=== PATIENT | male | born 1955 | race Caucasian/White ===

== ENCOUNTER 2025-01-21 11:59 | Inpatient (IN) ==
[2025-01-21 12:31] LABS: Hematocrit (blood only) 43.2 % (42.0-52.0); Hemoglobin 14.7 g/dl (14.0-18.0); Immature Granulocytes # (auto) 0.02 K/uL (0.01-0.20); Immature Granulocytes % (auto) 0.3 %; Mean Corpuscular Hemoglobin 32.3 pg (25.0-34.0); Mean Corpuscular Volume 94.9 fL (80.0-100.0); Platelet Count 163 K/uL (130-400); RDW Standard Deviation 47.1 fL (36.4-46.3); Red Blood Count 4.55 M/uL (4.70-6.10); White Blood Count 6.84 K/ul (4.8-10.8)
[2025-01-21] MEDS: ONDANSETRON INJ 2 MG/ML 2 ML VIAL IV STA (12:38)
[2025-01-21] MEDS: SODIUM CHLORIDE 0.9% 500 ML IV ONE ×2 (12:38→13:40)
[2025-01-21] MEDS: diphenhydrAMINE 50 MG/ML VIAL IV STA (12:39)
--- NOTE | 2025-01-21 12:40 | Emergency Department Note ---
Impression & Plan Acute CVA (cerebrovascular accident), Ambulatory dysfunction, Vomiting ED Provider Note NAME: JUAN CARLOS GONZALEZ AGE: 69 SEX: M : 1955 ARRIVES VIA: Walk-In INFORMANT: [Patient][] ED PROVIDER(S): [Roberto Carranza MD] Patient initially seen by me at 1215 CHIEF COMPLAINT: Dizziness HISTORY OF PRESENT ILLNESS: The patient is a 69-year-old male who had a bit of dizziness that would come and go yesterday. Today, at 6:30 AM, just about 6 hours ago, he was attempting to get to the bathroom when he felt very dizzy and had fuzzy vision. He has vomited 5 times. He feels unsteady on his feet. No speech slur, he did notice a slight headache. No chest pain or dyspnea. No arm or leg weakness on one side versus the other. As per his who is at bedside, the patient is unsteady on his feet and this is very unlike him. There has been no fever, no urinary complaints. No abdominal pain, no diarrhea. The patient's states that he had an episode like this about a month ago that seemed to resolve spontaneously. He had the start of symptoms again yesterday evening and things seemed to worsen this morning. PMHx/PSHx/Social Hx: See Below PHYSICAL EXAM: GENERAL: Patient is in no acute distress. HEENT: No acute trauma, normocephalic atraumatic, mucous membranes moist, no nasal congestion. Pupils equal and reactive to light. No nystagmus. NECK: No stridor, no adenopathy, no meningismus, trachea is midline. LUNGS: Clear to auscultation bilaterally, no wheeze, no rhonchi, breath sounds equal. HEART: Subtle systolic murmur, regular rate and rhythm. ABDOMEN: Soft, nontender, no peritonitis. EXTREMITIES: No cyanosis, full range of motion of all the joints without pain or difficulty. NEUROLOGIC: Oriented x 3, no acute motor or sensory deficits, no focal weakness. No facial droop or speech slur, no extremity drift or cerebellar dysfunction. SKIN: No jaundice, no diaphoresis. DIFFERENTIAL DIAGNOSIS: Stroke, vertigo, intracranial bleeding, electrolyte imbalance, UTI, among others. EMERGENCY DEPARTMENT PROCEDURES: MEDICAL DECISION MAKING: There is no leukocytosis or concerning anemia. There is a normal platelet count. No coagulopathy. No renal failure or significant electrolyte abnormality. No concerning liver enzyme elevation. ECG shows a sinus rhythm, there was no dysrhythmia or acute ischemia. Cardiac enzyme testing x 1 is not consistent with acute cardiac injury. Urinalysis does not show findings of infection. Brain CT shows no acute bleed or mass effect. CT angio of the head and neck were performed. 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 There was some mild stenosis in the arteries of the neck. On exam, the patient did not have any focal neurologic findings. His complaints centered around some issues with balance and dizziness. Stroke scale by my testing was 0. The patient was not a candidate for TNK as he was out of the time window. I did speak with the [facility] neurologist. The patient is not a TNK candidate, he is not a thrombectomy candidate, he is to be admitted to our hospital for further stroke workup. Aspirin and Plavix orally were suggested. Patient was ordered 4 baby aspirin orally and 300 mg of oral Plavix. I spoke with the patient and his , I spoke with case management, the on-call hospitalist was consulted. In short, the findings of acute CVA do seem to explain his symptoms. Prior/Outside records/notes reviewed: None ECG per my interpretation: Indication was possible stroke. The ECG shows a sinus bradycardia with a rate of 51. LVH is present. There is no ST elevation, no PVCs but the QTc is 420. Continuous Cardiac Monitoring per my interpretation: An order was placed for continuous cardiac monitoring. The monitor shows a rate of 60 with normal sinus rhythm. Imaging/x-ray results per my interpretation: Chronic Medical/Social conditions affecting care: Advanced age. Care/Management discussed with: [facility] neurolog[facility]-Dr. eCdeno. Case management and the on-call hospitalist. Level of care consideration(s): After review of the information above and other included data: --I believe the patient requires escalation of care to admission Critical Care Note: I have personally spent 49 minutes of critical care time in the direct management of this patient. This includes bedside care, interpretation of diagnostic studies, and testing, discussion with consultants, patient, and family members, and other required patient management activities. This 49 minutes is in excess of all separately billable procedures. DISPOSITION: Admission Past Med/Surg History Problem List (Updated 01/21/25 @ 14:39 by Roberto Carranza MD) Vomiting (Acute) Ambulatory dysfunction (Acute) Acute CVA (cerebrovascular accident) (Acute) Medical History GERD (gastroesophageal reflux disease) Dyslipidemia Peripheral neuropathy Colon cancer Surgical History History of bowel resection Social History Smoking Status: Never smoker Preferred Language: Spanish Feels Safe at Home: Yes Allergies Allergies Allergy/AdvReac Type Severity Reaction Status Date / Time No Known Allergies Allergy Verified 01/26/24 08:41 Results & Data (ED) Vital Signs Vital Signs - 24 hr 01/21/25 11:59 01/21/25 12:03 01/21/25 12:27 Temperature 36.7 C Temperature Source Temporal Artery Scan Pulse Rate 58 L 56 L Pulse Rate from SpO2 Sensor Respiratory Rate 20 Respiratory Effort / Characteristics Non-Labored Spontaneous Respiratory Depth Normal Blood Pressure 158/79 H Blood Pressure Mean 105 Pulse Oximetry 88 L 96 Oxygen Delivery Method Room Air Nasal Cannula Room Air Oxygen Flow Rate 0 Sepsis Recent Fever Within 48 Hours No Sepsis New/Unexplained Change in Mental Status N/A Sepsis Action Taken by Nursing No Action Required Oxygen Flow Rate - Titration 2 Pulse Oximetry Post Tiitration 94 01/21/25 12:33 01/21/25 12:42 01/21/25 12:56 Temperature Temperature Source Pulse Rate 58 L 54 L 60 Pulse Rate from SpO2 Sensor 58 L 53 L 59 L Respiratory Rate 15 15 19 Respiratory Effort / Characteristics Respiratory Depth Blood Pressure 136/82 Blood Pressure Mean 100 Pulse Oximetry 96 91 98 Oxygen Delivery Method Oxygen Flow Rate Sepsis Recent Fever Within 48 Hours Sepsis New/Unexplained Change in Mental Status Sepsis Action Taken by Nursing Oxygen Flow Rate - Titration Pulse Oximetry Post Tiitration 01/21/25 13:02 01/21/25 13:19 01/21/25 13:19 Temperature Temperature Source Pulse Rate 60 Pulse Rate from SpO2 Sensor 59 L Respiratory Rate 20 Respiratory Effort / Characteristics Respiratory Depth Blood Pressure 136/82 159/95 H 159/95 H Blood Pressure Mean 100 109 109 Pulse Oximetry 99 Oxygen Delivery Method Oxygen Flow Rate Sepsis Recent Fever Within 48 Hours Sepsis New/Unexplained Change in Mental Status Sepsis Action Taken by Nursing Oxygen Flow Rate - Titration Pulse Oximetry Post Tiitration 01/21/25 13:19 01/21/25 13:20 01/21/25 13:23 Temperature Temperature Source Pulse Rate 62 60 Pulse Rate from SpO2 Sensor 62 61 Respiratory Rate 15 28 H Respiratory Effort / Characteristics Respiratory Depth Blood Pressure 159/95 H Blood Pressure Mean 109 Pulse Oximetry 97 98 Oxygen Delivery Method Oxygen Flow Rate Sepsis Recent Fever Within 48 Hours Sepsis New/Unexplained Change in Mental Status Sepsis Action Taken by Nursing Oxygen Flow Rate - Titration Pulse Oximetry Post Tiitration 01/21/25 13:30 01/21/25 13:50 01/21/25 14:05 Temperature Temperature Source Pulse Rate 62 65 Pulse Rate from SpO2 Sensor 61 63 Respiratory Rate 14 13 Respiratory Effort / Characteristics Respiratory Depth Blood Pressure 141/92 H Blood Pressure Mean 103 Pulse Oximetry 99 99 Oxygen Delivery Method Oxygen Flow Rate Sepsis Recent Fever Within 48 Hours Sepsis New/Unexplained Change in Mental Status Sepsis Action Taken by Nursing Oxygen Flow Rate - Titration Pulse Oximetry Post Tiitration 01/21/25 14:17 Temperature Temperature Source Pulse Rate 59 L Pulse Rate from SpO2 Sensor 58 L Respiratory Rate 17 Respiratory Effort / Characteristics Respiratory Depth Blood Pressure 166/101 H Blood Pressure Mean 122 Pulse Oximetry 99 Oxygen Delivery Method Oxygen Flow Rate Sepsis Recent Fever Within 48 Hours Sepsis New/Unexplained Change in Mental Status Sepsis Action Taken by Nursing Oxygen Flow Rate - Titration Pulse Oximetry Post Tiitration Home Medications Current Medication List: was personally reviewed by me Laboratory Data Attestation: I reviewed the patient's lab results. 01/21/25 12:10 01/21/25 12:10 Lab Results 01/21/25 01/21/25 Range/Units 12:10 13:41 WBC 6.84 (4.8-10.8) K/ul RBC 4.55 L (4.70-6.10) M/uL Hgb 14.7 (14.0-18.0) g/dl Hct 43.2 (42.0-52.0) % MCV 94.9 (80.0-100.0) fL MCH 32.3 (25.0-34.0) pg MCHC 34.0 (32.0-36.0) g/dL RDW Std Deviation 47.1 H (36.4-46.3) fL RDW Coeff of [place] 13.4 (11.5-14.5) % Plt Count 163 (130-400) K/uL MPV 9.3 L (9.4-12.4) fL Immature Gran % (Auto) 0.3 % Neut % (Auto) 54.6 % Lymph % (Auto) 38.5 % Coffee % (Auto) 4.8 % Eos % (Auto) 1.2 % Baso % (Auto) 0.6 % Neut # (Auto) 3.74 (1.40-6.50) K/uL Lymph # (Auto) 2.63 (1.20-3.40) K/uL Coffee # (Auto) 0.33 (0.11-0.59) K/uL Eos # (Auto) 0.08 (0.00-0.50) K/uL Baso # (Auto) 0.04 (0.00-0.20) K/uL Immature Gran # (Auto) 0.02 (0.01-0.20) K/uL PT 11.2 (9.0-12.0) Seconds INR 1.0 (0.9-1.1) APTT 25 (21-31) Seconds PTT Ratio 0.9 Sodium 139 (136-145) mmol/L Potassium 4.5 (3.5-5.1) mmol/L Chloride 106 (98-107) mmol/L Carbon Dioxide 27 (21-32) mmol/L Anion Gap 6 (3-11) BUN 11 (6-23) mg/dl Creatinine 1.15 (0.6-1.4) mg/dl Est Cr Clr Drug Dosing 62.4 ml/min eGFR 68.47 BUN/Creatinine Ratio 9.6 L (10-20) Glucose 122 H (70-99(Fasting)) mg/dl Calcium 9.3 (8.6-10.3) mg/dl Magnesium 2.0 (1.7-2.4) mg/dl Total Bilirubin 0.9 (0.2-1.0) mg/dl AST 27 (13-39) U/L ALT 18 (7-52) U/L Alkaline Phosphatase 50 (34-104) U/L Troponin I High Sens 5.0 (0-20) pg/ml Total Protein 7.5 (6.0-8.3) gm/dl Albumin 4.2 (3.4-5.0) gm/dl Globulin 3.3 (2.5-4.0) gm/dl Albumin/Globulin Ratio 1.3 (0.9-2) Urine Color Yellow Urine Appearance Clear (Clear) Urine pH 8.0 H (4.5-7.5) Ur Specific [place] > 1.045 H (1.000-1.030) Urine Protein Negative (Negative) Urine Glucose (UA) Negative (Negative) Urine Ketones Negative (Negative) Urine Blood Negative (Negative) Urine Nitrite Negative (Negative) Urine Bilirubin Negative (Negative) Urine Urobilinogen Negative (Negative) Ur Leukocyte Esterase 1+ H (Negative) Urine WBC (Auto) 0-5 (0-5) /hpf Urine RBC (Auto) 0-2 (0-2) /hpf U Hyaline Cast (Auto) 0-2 (0-2) /lpf U Epithel Cells (Auto) 0-2 (0-2) /hpf Urine Bacteria (Auto) None Seen (None Seen) Urine Comment Administered Medications Discontinued Medications Aspirin (Aspirin Chew 324 Mg) 324 mg PO NOW STA Stop: 01/21/25 14:09 Last Admin: 01/21/25 14:12 Dose: 324 mg Documented By: JAYME Clopidogrel Bisulfate (Clopidogrel Bisulfate 300 Mg Tab) 300 mg PO NOW STA Stop: 01/21/25 14:09 Last Admin: 01/21/25 14:12 Dose: 300 mg Documented By: JAYME Diphenhydramine HCl (Diphenhydramine 50 Mg/Ml Vial) 12.5 mg IV NOW STA Stop: 01/21/25 12:10 Last Admin: 01/21/25 12:39 Dose: 12.5 mg Documented By: JAYME Sodium Chloride (Nss) 500 mls @ 999 mls/hr IV .Q31M ONE Stop: 01/21/25 12:39 Last Admin: 01/21/25 12:38 Dose: 999 mls/hr Documented By: JAYME Sodium Chloride (Nss) 500 mls @ 999 mls/hr IV .Q31M ONE Stop: 01/21/25 14:02 Last Admin: 01/21/25 13:40 Dose: 999 mls/hr Documented By: JAYME Ioversol (Optiray 320 125ml) 112 ml IV ONCE ONE Stop: 01/21/25 13:08 Last Admin: 01/21/25 13:08 Dose: 112 ml Documented By: CAMDEN Ondansetron HCl (Ondansetron Inj 2 Mg/Ml 2 Ml Vial) 4 mg IV NOW STA Stop: 01/21/25 12:10 Last Admin: 01/21/25 12:38 Dose: 4 mg Documented By: JAYME Imaging Data Radiologist's Impression: Head CT 01/21/25 12:09 CT SCAN OF THE BRAIN WITHOUT IV CONTRAST CLINICAL HISTORY: Neuro deficit. Acute stroke suspected. Dizziness. COMPARISON STUDY: None. TECHNIQUE: Unenhanced axial CT scan of the brain was performed from the vertex to the skull base. A dose lowering technique was utilized adhering to the principles of ALARA. FINDINGS: Brain parenchyma: No acute intracranial hemorrhage, midline shift or mass effect is present. Lloyd-white matter differentiation is preserved. There are no extra- axial fluid collections. There are no findings to suggest acute dural sinus thrombosis or acute territorial infarct. Bilateral basal ganglia calcification is incidentally noted. White matter hypodensity suggests small vessel disease. Ventricles, sulci, cisterns: There is no hydrocephalus. There is a cavum septum pellucidum. The basal cisterns are patent. Calvarium: Unremarkable. Sinuses and mastoids: The visualized paranasal sinuses are clear. The mastoid air cells are well pneumatized. Orbits: The bony orbits are grossly intact. IMPRESSION: No acute intracranial findings. ACT 112: Negative or not required by law. Electronically signed by: Alfonzo Munroe M.D. 01/21/2025 1:35 PM Head CTA 01/21/25 12:09 CTA ANGIOGRAPHY OF THE HEAD CLINICAL HISTORY: neuro deficit, acute stroke suspected COMPARISON STUDY: No previous studies for comparison. TECHNIQUE: Helical axial images of the head were obtained following uneventful intravenous administration of 94 cc of Optiray. Sagittal and coronal reconstructions were viewed as well as maximal intensity projections on an independent 3-D workstation. Automated exposure control was utilized for the study. A dose lowering technique was utilized adhering to the principles of ALARA. CT DOSE: 1169.11 mGy.cm FINDINGS: Please note that the head CT will be reported separately. No acute intracranial hemorrhage, midline shift or mass effect is present. Basal cisterns are patent. There are no extra-axial collections. The bilateral M1, M2, A1 and A2 segments are patent. There is moderate atherosclerotic plaque within the cavernous carotids without significant stenosis. There is no intracranial aneurysm. The intracranial portions of the vertebral arteries are patent. Apparent occlusion of a vessel within the posterior fossa on image 45 is noted. This likely represents the left posterior inferior cerebellar artery. The basilar artery is patent. The posterior cerebral arteries are patent. IMPRESSION: 1. Probable occlusion of a vessel within the posterior fossa likely representing occlusion with distal reconstitution of the left PICA. This could be correlated with clinical evidence for an acute left PICA infarct. If indicated, MRI could be obtained. 2. No additional sites of intracranial vessel occlusion. 3. Moderate atherosclerotic plaque within the cavernous carotids. ACT 112: Negative or not required by law. Electronically signed by: Alfonzo Munroe M.D. 01/21/2025 1:45 PM Neck CTA 01/21/25 12:09 CT ANGIOGRAPHY OF THE NECK WITH CONTRAST CLINICAL HISTORY: neuro deficit, acute stroke suspected COMPARISON STUDY: No previous studies for comparison. Technique: CT angiography of the carotid and vertebral arteries was obtained using Optiray and 3D reconstruction on an independent workstation. NASCET criteria was utilized. Automated exposure control was utilized for the study. A dose lowering technique was utilized adhering to the principles of ALARA. Findings: Visualized portions of the lung apices are unremarkable. There is no cervical lymphadenopathy. There are no cervical spine fractures. There is extensive plaque within the proximal right internal carotid artery results in 30% narrowing. There is extensive plaque within the proximal left internal carotid artery without stenosis. The vertebral arteries are patent with no dissection or aneurysm within the neck. CTA of the head will be reported separately. IMPRESSION: Atherosclerotic plaque within the proximal bilateral internal carotid arteries which results in 30% stenosis of the proximal right internal carotid artery. No stenosis of the cervical left internal carotid artery. ACT 112: Negative or not required by law. Electronically signed by: Alfonzo Munroe M.D. 01/21/2025 1:39 PM Discharge Plan Visit Data Chief Complaint: Dizziness Stated Complaint: DIZZY, VOMITING ED Provider: Roberto Carranza Discharge Problem: Acute CVA (cerebrovascular accident), Ambulatory dysfunction, Vomiting Patient Disposition: Admitted As Inpatient Condition: Fair Forms Stand Alone Forms: [facility] Referrals Referrals: PCP,NO [Physician] - Discharge Problem: Vomiting Qualifiers: Vomiting type: unspecified Nausea presence: with nausea Qualified Code(s): R 11.2 - Nausea with vomiting, unspecified
[2025-01-21 12:48] LABS: Alanine Aminotransferase 18.0 U/L (7-52); Albumin Globulin Ratio 1.3 (0.9-2); Alkaline Phosphatase 50.0 U/L (34-104); Anion Gap 6.0 (3-11); Bilirubin,Total 0.9 mg/dl (0.2-1.0); Blood Urea Nitrogen 11.0 mg/dl (6-23); Calcium 9.3 mg/dl (8.6-10.3); Carbon Dioxide 27.0 mmol/L (21-32); Chloride 106.0 mmol/L (98-107); Creatinine Clr Calc Pharmacy 62.4 ml/min; Globulin 3.3 gm/dl (2.5-4.0); Glucose 122.0 mg/dl (70-99(Fasting)); Magnesium 2.0 mg/dl (1.7-2.4); Potassium 4.5 mmol/L (3.5-5.1); Sodium 139.0 mmol/L (136-145); Total Protein 7.5 gm/dl (6.0-8.3)
[2025-01-21] MEDS: OPTIRAY 320 125ml IV ONE (13:08)
[2025-01-21 13:13] LABS: INR 1.0 (0.9-1.1); Partial Thromboplastin Time 25 Seconds (21-31); Prothrombin Time 11.2 Seconds (9.0-12.0)
--- NOTE | 2025-01-21 13:37 | CT Scan Report ---
CT SCAN OF THE BRAIN WITHOUT IV CONTRAST CLINICAL HISTORY: Neuro deficit. Acute stroke suspected. Dizziness. COMPARISON STUDY: None. TECHNIQUE: Unenhanced axial CT scan of the brain was performed from the vertex to the skull base. A dose lowering technique was utilized adhering to the principles of ALARA. FINDINGS: Brain parenchyma: No acute intracranial hemorrhage, midline shift or mass effect is present. Lloyd-whi te matter differentiation is preserved. There are no extra-axial fluid collections. There are no find ings to suggest acute dural sinus thrombosis or acute territorial infarct. Bilateral basal ganglia ca lcification is incidentally noted. White matter hypodensity suggests small vessel disease. Ventricles, sulci, cisterns: There is no hydrocephalus. There is a cavum septum pellucidum. The basal cisterns are patent. Calvarium: Unremarkable. Sinuses and mastoids: The visualized paranasal sinuses are clear. The mastoid air cells are well pneu matized. Orbits: The bony orbits are grossly intact. IMPRESSION: No acute intracranial findings. ACT 112: Negative or not required by law. Electronically signed by: Alfonzo Munroe M.D. 01/21/2025 1:35 PM
--- NOTE | 2025-01-21 13:41 | CT Scan Report ---
CT ANGIOGRAPHY OF THE NECK WITH CONTRAST CLINICAL HISTORY: neuro deficit, acute stroke suspected COMPARISON STUDY: No previous studies for comparison. Technique: CT angiography of the carotid and vertebral arteries was obtained using Optiray and 3D rec onstruction on an independent workstation. NASCET criteria was utilized. Automated exposure control was utilized for the study. A dose lowering technique was utilized adhering to the principles of ALA RA. Findings: Visualized portions of the lung apices are unremarkable. There is no cervical lymphadenopat hy. There are no cervical spine fractures. There is extensive plaque within the proximal right internal medicine doctor al carotid artery results in 30% narrowing. There is extensive plaque within the proximal left internal medicine doctor al carotid artery without stenosis. The vertebral arteries are patent with no dissection or aneurysm within the neck. CTA of the head will be reported separately. IMPRESSION: Atherosclerotic plaque within the proximal bilateral internal carotid arteries which resu lts in 30% stenosis of the proximal right internal carotid artery. No stenosis of the cervical left i nternal carotid artery. ACT 112: Negative or not required by law. Electronically signed by: Alfonzo Munroe M.D. 01/21/2025 1:39 PM
--- NOTE | 2025-01-21 13:47 | CT Scan Report ---
CTA ANGIOGRAPHY OF THE HEAD CLINICAL HISTORY: neuro deficit, acute stroke suspected COMPARISON STUDY: No previous studies for comparison. TECHNIQUE: Helical axial images of the head were obtained following uneventful intravenous administr ation of 94 cc of Optiray. Sagittal and coronal reconstructions were viewed as well as maximal intens ity projections on an independent 3-D workstation. Automated exposure control was utilized for the fred yeung. A dose lowering technique was utilized adhering to the principles of ALARA. CT DOSE: 1169.11 mGy.cm FINDINGS: Please note that the head CT will be reported separately. No acute intracranial hemorrhage, midline shift or mass effect is present. Basal cisterns are patent. There are no extra-axial collect ions. The bilateral M1, M2, A1 and A2 segments are patent. There is moderate atherosclerotic plaque w ithin the cavernous carotids without significant stenosis. There is no intracranial aneurysm. The int racranial portions of the vertebral arteries are patent. Apparent occlusion of a vessel within the po sterior fossa on image 45 is noted. This likely represents the left posterior inferior cerebellar art madonna. The basilar artery is patent. The posterior cerebral arteries are patent. IMPRESSION: 1. Probable occlusion of a vessel within the posterior fossa likely representing occlusion with dista l reconstitution of the left PICA. This could be correlated with clinical evidence for an acute left PICA infarct. If indicated, MRI could be obtained. 2. No additional sites of intracranial vessel occlusion. 3. Moderate atherosclerotic plaque within the cavernous carotids. ACT 112: Negative or not required by law. Electronically signed by: Alfonzo Munroe M.D. 01/21/2025 1:45 PM
[2025-01-21 14:11] LABS: Appearance Urine Clear (Clear); Bacteria Urine Automated None Seen (None Seen); Cast Urine Automated 0-2 /lpf (0-2); Epithelial Cell Urine Auto 0-2 /hpf (0-2); Glucose Urine UA Negative (Negative); RBC Urine Automated 0-2 /hpf (0-2); WBC Urine Automated 0-5 /hpf (0-5)
[2025-01-21] MEDS: ASPIRIN CHEW 324 MG PO STA (14:12)
[2025-01-21] MEDS: CLOPIDOGREL BISULFATE 300 MG TAB PO STA (14:12)
--- NOTE | 2025-01-21 14:59 | History & Physical Report ---
Date of Service January 21, 2025 Assessment & Plan (1) Acute CVA (cerebrovascular accident): Plan: MRI showed-Bilateral Cerebellar infarct Left>Right Presented with acute dizziness and unsteadiness with nausea, vomiting and blurred vision since 6:30 AM Noted to have left PICA infarct with occlusion Past the window for TNK The ER physician did discuss with the teleneurology and was advised to start aspirin Plavix No problem with swallowing and visual symptoms resolved Venancio get Echocardiogram with bubble study and lipid profile Aspirin and Plavix will be continued.PT/OT requested Neuroexam q shift Neurology consult (2) Ambulatory dysfunction: Plan: Likely secondary to posterior circulation stroke Will have PT and OT evaluation (3) Peripheral neuropathy: Plan: History of colon cancer and is status post chemotherapy 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 (4) GERD (gastroesophageal reflux disease): Plan: Willll continue with PPI (5) Dyslipidemia: Plan: Continue fenofibrate and will add statin DVT prophylaxis Subcu heparin CODE STATUS full The case was discussed in detail with the and the patient himself History of Present Illness Chief Complaint: Nausea, vomiting, dizziness and blurry vision at around 6:30 AM today she she is Primary Care Provider: Nomi Archuleta DO He is 69-year-old male significant past medical history of colon cancer status postchemotherapy, peripheral neuropathy secondary to chemotherapy, hyperlipidemia, sleep apnea, GERD and lumbar degenerative disc disease apparently has been complaining of nausea with vomiting about 7 times started around 6:30 AM associated with dizziness and unsteady gait and also blurry vision. His symptoms improved after coming to the emergency room and during that time upon neuro examinations by the ER physician later on by myself have been negative. He was noted to have occlusion of the left posterior inferior cerebellar artery. The ER physician did discuss with the teleneurologist and was advised to get aspirin and Plavix and also performed stroke workup. He denies any other symptoms and does not have any fever, any chills, any nausea or vomiting, any chest pain palpitation, any blurry of vision or headache and does not have any numbness and or tingling involving any of the extremities. He was admitted to telemetry unit for continuation of care Allergies Allergy/AdvReac Type Severity Reaction Status Date / Time No Known Allergies Allergy Verified 01/26/24 08:41 Home Medications Medication Instructions Recorded Confirmed Type fenofibrate nanocrystallized 48 mg 48 mg PO DAILY 01/21/25 01/21/25 History tablet gabapentin 100 mg capsule 100 mg PO TID 01/21/25 01/21/25 History omeprazole 20 mg capsule,delayed 20 mg PO BID 01/21/25 01/21/25 History release oxycodone-acetaminophen 5 mg-325 1 tab PO DIRECTED PRN Pain 01/21/25 01/21/25 History mg tablet Past Med/Surg History Problem List (Updated 01/21/25 @ 14:39 by Roberto Carranza MD) Vomiting (Acute) Ambulatory dysfunction (Acute) Acute CVA (cerebrovascular accident) (Acute) Medical History GERD (gastroesophageal reflux disease) Dyslipidemia Peripheral neuropathy Colon cancer Surgical History History of bowel resection Social History Smoking Status: Former smoker Tobacco Type: Cigarettes Hx Alcohol Use: No Hx Substance Use: No Preferred Language: Lao Communication Ability: Effective Sign Out Clerk Required: No Beliefs That Will Affect Care: None Current Living Situation: Spouse Other Information That Helps Us Care for You: No Feels Safe at Home: Yes Safety Concerns: Feels Safe At This Time Assistive Devices: Denture - Upper, Denture - Lower and Glasses Review of Systems Review of Systems: All systems reviewed and unremarkable except as noted below Physical Exam Physical Exam: Lying in bed without any acute distress Constitutional: well developed, well nourished and + obese; not ill appearing Eyes: PERRL, conjunctivae normal, anicteric sclerae ENMT: external ear and nose normal, oropharynx normal Neck: trachea midline, no thyromegaly Respiratory: no respiratory distress Auscultation: lungs clear to auscultation bilaterally Cardiovascular: Rate/Rhythm: regular rate and regular rhythm; not tachycardic Heart Sounds: normal S1 and normal S2; no murmur Extremities: no edema Gastrointestinal (Abdomen): Inspection/Auscultation: normal bowel sounds; abdomen not distended Percussion/Palpation: abdomen soft; abdomen nontender Musculoskeletal: No acute arthritis involving any of the joint Neurologic: normal touch/pain/proprioception, CN's II-XI intact bilaterally and moves all extremities; no focal motor deficits Psychiatric: A+Ox3, euthymic affect Lymphatic: no cervical or axillary lymphadenopathy Results & Data Results & Data Vital Signs (Past 12 Hours) Vital Signs Temp Pulse Resp BP Pulse Ox O2 Del Method O2 Flow Rate 01/21/25 14:17 59 L 17 166/101 H 99 01/21/25 14:05 65 13 99 01/21/25 13:50 62 14 99 01/21/25 13:30 141/92 H 01/21/25 13:23 60 28 H 98 01/21/25 13:20 62 15 97 01/21/25 13:19 159/95 H 01/21/25 13:19 159/95 H 01/21/25 13:19 159/95 H 01/21/25 13:02 60 20 136/82 99 01/21/25 12:56 60 19 98 01/21/25 12:42 54 L 15 136/82 91 01/21/25 12:33 58 L 15 96 01/21/25 12:27 56 L 01/21/25 12:03 36.7 C 58 L 20 158/79 H 96 Room Air 01/21/25 11:59 88 L Room Air, Nasal Cannula 0 Laboratory Results Short CBC 01/21/25 Range/Units 12:10 WBC 6.84 (4.8-10.8) K/ul Hgb 14.7 (14.0-18.0) g/dl Hct 43.2 (42.0-52.0) % Plt Count 163 (130-400) K/uL BMP 01/21/25 12:10 Sodium 139 Potassium 4.5 Chloride 106 Carbon Dioxide 27 BUN 11 Creatinine 1.15 Glucose 122 H Calcium 9.3 Liver Function 01/21/25 Range/Units 12:10 Total Bilirubin 0.9 (0.2-1.0) mg/dl AST 27 (13-39) U/L ALT 18 (7-52) U/L Alkaline Phosphatase 50 (34-104) U/L Albumin 4.2 (3.4-5.0) gm/dl Urine 01/21/25 Range/Units 13:41 Urine Color Yellow Urine Appearance Clear (Clear) Urine pH 8.0 H (4.5-7.5) Ur Specific [place] > 1.045 H (1.000-1.030) Urine Protein Negative (Negative) Urine Glucose (UA) Negative (Negative) Medications Administered Current Inpatient Medications Aspirin (Aspirin 81 Mg Ectab) 81 mg PO DAILY JOAN Stop: 02/21/25 08:59 Clopidogrel Bisulfate (Clopidogrel Bisulfate 75 Mg Tab) 75 mg PO QAM [facility] Stop: 02/21/25 08:59 Heparin Sodium (Porcine) (Heparin Sod 5,000 Unit/0.5 Ml Vial) 5,000 units SQ Q12 [facility] Stop: 02/20/25 20:59 Code Status & VTE Plan VTE Prophylaxis Plan VTE Prophylaxis will be ordered: Yes
--- NOTE | 2025-01-21 15:26 | Communication Note ---
Date of Service: January 21, 2025 Please do the Med Rec. Thank You
--- NOTE | 2025-01-21 17:28 | Magnetic Resonance Report ---
Exam: MRI of the brain without contrast. Reason for exam: Dizziness and nausea, rule out CVA. Loss of balance. Previous studies: None FINDINGS: No evidence of pituitary mass or suprasellar lesion. There are areas of restricted diffusion in the central inferior left cerebellar hemisphere and peripherally of the medial cerebellar hemispheres bilaterally. No mass effect or hemorrhage is seen. Calvarium septum pellucidum is present. No extra-axial bladder fluid collection is present. No specific evidence of ventricular enlargement is noted. Moderate amount of diffuse and essentially symmetric bright signal is seen in the deep periventricular white matter on the T2 images most often suggestive of chronic microvascular ischemia. IMPRESSION: 1. Areas of acute ischemic infarction occurring in the periphery of the cerebellar hemispheres bilaterally, left side greater than right. 2. Negative for mass or hemorrhage. 3. Moderate chronic ischemic angiopathy in the deep white matter. 4. The patient's hospitalist Dr Galicia was informed of these findings at 1720 hours. Electronically signed by Jose Dai 01-21-2025 5:28 PM
--- NOTE | 2025-01-21 19:18 | Electrocardiogram Report ---
Test Reason : Blood Pressure : */* mmHG Vent. Rate : 51 BPM Atrial Rate : 51 BPM P-R Int : 140 ms QRS Dur : 88 ms QT Int : 456 ms P-R-T Axes : 35 -14 19 degrees QTcB Int : 420 ms Sinus bradycardia Minimal voltage criteria for LVH, may be normal variant ( R in aVL ) Borderline ECG No previous ECGs available Confirmed by Cameron Meza ([id number]) on 01/21/2025 7:18:28 PM Referred By: REFERRED SELF Confirmed By: Cameron Meza
[2025-01-21] MEDS: HEPARIN SOD 5,000 UNIT/0.5 ML VIAL SQ SCH (20:16)
[2025-01-21] MEDS: GABAPENTIN 100 MG CAP PO SCH (20:16)
[2025-01-22 06:56] LABS: Hematocrit (blood only) 41.3 % (42.0-52.0); Hemoglobin 14.1 g/dl (14.0-18.0); Immature Granulocytes # (auto) 0.01 K/uL (0.01-0.20); Immature Granulocytes % (auto) 0.1 %; Mean Corpuscular Hemoglobin 32.3 pg (25.0-34.0); Mean Corpuscular Volume 94.5 fL (80.0-100.0); Platelet Count 148 K/uL (130-400); RDW Standard Deviation 46.0 fL (36.4-46.3); Red Blood Count 4.37 M/uL (4.70-6.10); White Blood Count 8.31 K/ul (4.8-10.8)
[2025-01-22 07:25] LABS: Anion Gap 5.0 (3-11); Blood Urea Nitrogen 12.0 mg/dl (6-23); Calcium 8.7 mg/dl (8.6-10.3); Carbon Dioxide 29.0 mmol/L (21-32); Chloride 105.0 mmol/L (98-107); Cholesterol 166.0 mg/dl (0-200); Creatinine Clr Calc Pharmacy 59.1 ml/min; Glucose 87.0 mg/dl (70-99(Fasting)); HDL Cholesterol 29.0 mg/dl; Magnesium 2.1 mg/dl (1.7-2.4); Potassium 4.2 mmol/L (3.5-5.1); Sodium 139.0 mmol/L (136-145); Triglycerides 305.0 mg/dl (0-150)
[2025-01-22 07:40] LABS: Thyroid Stimulating Hormone 1.191 uIu/ml (0.300-4.500)
[2025-01-22] MEDS: FENOFIBRATE NANOCRYSTALLIZED 48 MG TABLET PO SCH (07:48)
[2025-01-22] MEDS: CLOPIDOGREL BISULFATE 75 MG TAB PO SCH (07:49)
[2025-01-22] MEDS: ATORVASTATIN 40 MG TAB PO SCH (07:49)
[2025-01-22] MEDS: ASPIRIN 81 MG ECTAB PO SCH (07:49)
[2025-01-22 07:52] LABS: Folate (Folic Acid),Ser orPlas 18.61 ng/ml (>5.38)
[2025-01-22 07:53] LABS: Vitamin B12 350.0 pg/ml (180-914)
--- NOTE | 2025-01-22 12:00 | Neurology Consultation ---
Date of Consultation January 22, 2025 Assessment & Plan (1) Acute ischemic stroke: Recommend continued stroke work up to include the following: Recommend Keep HOB elevated Continue to monitor serum sodium Avoid hyponatremia Repeat CT brain without contrast noew and in AM to evaluate for further stroke progression/monitor cytotoxic edema Echocardiogram as part of complete stroke workup Continue frequent neurological assessments Obtain stat CT brain without contrast for any acute neurological decline Continue to monitor/control blood pressure & blood glucose Continue to monitor telemetry closely Recommend ZioPatch at DC if no evidence of arrhythmia during inpatient monitoring Continue to monitor renal and hepatic function, keep euvolemic Metabolic workup should include hgbA1c, fasting lipids Recommend DAPT for at least 3 weeks Recommend high dose statin therapy indefinitely if tolerated Ok from neurology perspective for VTE prophylaxis PT/OT/SLT to eval and treat Telehealth Consultation Telehealth Information Telehealth Information: I performed this visit using a real-time telehealth connection between my location and the patients location ([facility]). After connecting through interactive tele-video, patient was identified by name and date of and/or wristband check.Patient (or authorized healthcare office services representative) was informed that this was a telemedicine visit and it was being conducted confidentially over secure lines. My office door was closed and no one else was present in the room with me.Patient (or authorized healthcare office services representative) provided consent to proceed with the visit, expressed an understanding of privacy and security of the telemedicine visit, and gave permission to have a hospital office services representative in the room in order to assist with the visit and to conduct portions of the visit, as needed. I informed the patient (or authorized healthcare office services representative) that I reviewed their record and presented the opportunity for them to ask any questions regarding the visit today. The patient agreed to participate. History of Present Illness Reason for Consultation: Stroke Requesting Physician: Dr Ortiz Attending Physician: Osbaldo Ortiz MD History of Present Illness 69yo male with hx of colon CA hyperlipidemia, ASHLEY reportedly suffered nausea and vomiting with blurred vision and unsteady ambulation has undergone brain imaging revealing bilateral cerebellar strokes. He has undergone CTA head and neck revealing likely left PICA occlusion and mild bilateral ICA stenosis left > right. He reports having recent episode of dizziness and nausea as well. Reports he has not been prescribed O2 or CPAP at times of sleep. No reported cephalgia or cervicalgia. Denies chest pain/palpitations or shortness of breath at this time. No reported changes in vision hearing dizziness syncope seizure like activity or paresthesia. Denies recent fevers chills nausea vomiting changes in bowels or bladder. Denies recent medication changes, recent illness or sick contacts, no reported recent travel. I have performed televideo consultation. He is alert & oriented; able to answer all questions appropriately, name objects on televideo monitor, repeat phrases and perform complex/embedded commands without deficit. Neurological exam is non lateralizing/nonfocal in terms of motor strength and coordination. Allergies Allergy/AdvReac Type Severity Reaction Status Date / Time No Known Allergies Allergy Verified 01/26/24 08:41 Home Medications Medication Instructions Recorded Confirmed Type fenofibrate nanocrystallized 48 mg 48 mg PO DAILY 01/21/25 01/21/25 History tablet gabapentin 100 mg capsule 100 mg PO TID 01/21/25 01/21/25 History omeprazole 20 mg capsule,delayed 20 mg PO BID 01/21/25 01/21/25 History release oxycodone-acetaminophen 5 mg-325 1 tab PO DIRECTED PRN Pain 01/21/25 01/21/25 History mg tablet Patient History Medical History GERD (gastroesophageal reflux disease) Dyslipidemia Peripheral neuropathy Colon cancer Surgical History History of bowel resection Social History Smoking Status: Former smoker Tobacco Type: Cigarettes Hx Alcohol Use: No Hx Substance Use: No Preferred Language: Polish Communication Ability: Effective Clerk Rating Required: No Beliefs That Will Affect Care: None Current Living Situation: Spouse Other Information That Helps Us Care for You: No Feels Safe at Home: Yes Safety Concerns: Feels Safe At This Time Assistive Devices: Denture - Upper, Denture - Lower and Glasses Physical Exam Neurological Examination: Mental Status: Awake and alert. Oriented to person, place, and time. Fluency naming repetition and comprehension appear grossly intact. Affect remains appropriate. CN testing: I: Deferred II:Reports no changes in visual acuity III/IV/: No evidence of gaze preference, hippus, nystagmus or roving eye movements V: Facial sensation reportedly grossly intact to light touch bilaterally VII: Facial movements appear without evidence of asymmetry VIII: Hearing appears grossly intact to loud voice bilaterally IX/X: Palate is unable to be accurately visualized via telemedicine XI: Shoulder shrug appears symmetric/ grossly intact bilaterally XII: Tongue protrudes midline without evidence of biting Motor exam: Strength appears grossly intact/symmetric in all extremities Sensory: Sensation is reportedly grossly intact throughout Coordination: Finger to nose intact bilaterally. No apparent evidence of dysmetria or dysdiadochokinesia Reflexes: Deferred Gait: Deferred Results & Data Vital Signs (Past 12 Hours) Vital Signs Temp Pulse Pulse Resp BP Pulse Ox O2 Del Method 01/22/25 10:56 36.6 C 58 L 23 131/74 93 Room Air 01/22/25 08:24 36.7 C 68 20 132/72 92 Room Air 01/22/25 08:00 61 01/22/25 04:31 71 01/22/25 04:21 37.0 C 52 L 17 127/72 96 Room Air Laboratory Results Abnormal lab results 01/21/25 01/21/25 01/22/25 Range/Units 12:10 13:41 06:31 RBC 4.55 L 4.37 L (4.70-6.10) M/uL Hct 41.3 L (42.0-52.0) % RDW Std Deviation 47.1 H (36.4-46.3) fL MPV 9.3 L (9.4-12.4) fL Lymph # (Auto) 4.05 H (1.20-3.40) K/uL BUN/Creatinine Ratio 9.6 L 9.9 L (10-20) Glucose 122 H (70-99(Fasting)) mg/dl Triglycerides 305 H (0-150) mg/dl VLDL Cholesterol, Calc 61 H (0-30) mg/dl Cholesterol/HDL Ratio 5.7 H (0-5) Urine pH 8.0 H (4.5-7.5) Ur Specific [place] > 1.045 H (1.000-1.030) Ur Leukocyte Esterase 1+ H (Negative) Diagnostic Findings Head CT 01/21/25 12:09 CT SCAN OF THE BRAIN WITHOUT IV CONTRAST CLINICAL HISTORY: Neuro deficit. Acute stroke suspected. Dizziness. COMPARISON STUDY: None. TECHNIQUE: Unenhanced axial CT scan of the brain was performed from the vertex to the skull base. A dose lowering technique was utilized adhering to the principles of ALARA. FINDINGS: Brain parenchyma: No acute intracranial hemorrhage, midline shift or mass effect is present. Lloyd-white matter differentiation is preserved. There are no extra- axial fluid collections. There are no findings to suggest acute dural sinus thrombosis or acute territorial infarct. Bilateral basal ganglia calcification is incidentally noted. White matter hypodensity suggests small vessel disease. Ventricles, sulci, cisterns: There is no hydrocephalus. There is a cavum septum pellucidum. The basal cisterns are patent. Calvarium: Unremarkable. Sinuses and mastoids: The visualized paranasal sinuses are clear. The mastoid air cells are well pneumatized. Orbits: The bony orbits are grossly intact. IMPRESSION: No acute intracranial findings. ACT 112: Negative or not required by law. Electronically signed by: Alfonzo Munroe M.D. 01/21/2025 1:35 PM Head CTA 01/21/25 12:09 CTA ANGIOGRAPHY OF THE HEAD CLINICAL HISTORY: neuro deficit, acute stroke suspected COMPARISON STUDY: No previous studies for comparison. TECHNIQUE: Helical axial images of the head were obtained following uneventful intravenous administration of 94 cc of Optiray. Sagittal and coronal reconstructions were viewed as well as maximal intensity projections on an independent 3-D workstation. Automated exposure control was utilized for the study. A dose lowering technique was utilized adhering to the principles of ALARA. CT DOSE: 1169.11 mGy.cm FINDINGS: Please note that the head CT will be reported separately. No acute intracranial hemorrhage, midline shift or mass effect is present. Basal cisterns are patent. There are no extra-axial collections. The bilateral M1, M2, A1 and A2 segments are patent. There is moderate atherosclerotic plaque within the cavernous carotids without significant stenosis. There is no intracranial aneurysm. The intracranial portions of the vertebral arteries are patent. Apparent occlusion of a vessel within the posterior fossa on image 45 is noted. This likely represents the left posterior inferior cerebellar artery. The basilar artery is patent. The posterior cerebral arteries are patent. IMPRESSION: 1. Probable occlusion of a vessel within the posterior fossa likely representing occlusion with distal reconstitution of the left PICA. This could be correlated with clinical evidence for an acute left PICA infarct. If indicated, MRI could be obtained. 2. No additional sites of intracranial vessel occlusion. 3. Moderate atherosclerotic plaque within the cavernous carotids. ACT 112: Negative or not required by law. Electronically signed by: Alfonzo Munroe M.D. 01/21/2025 1:45 PM Neck CTA 01/21/25 12:09 CT ANGIOGRAPHY OF THE NECK WITH CONTRAST CLINICAL HISTORY: neuro deficit, acute stroke suspected COMPARISON STUDY: No previous studies for comparison. Technique: CT angiography of the carotid and vertebral arteries was obtained using Optiray and 3D reconstruction on an independent workstation. NASCET criteria was utilized. Automated exposure control was utilized for the study. A dose lowering technique was utilized adhering to the principles of ALARA. Findings: Visualized portions of the lung apices are unremarkable. There is no cervical lymphadenopathy. There are no cervical spine fractures. There is extensive plaque within the proximal right internal carotid artery results in 30% narrowing. There is extensive plaque within the proximal left internal carotid artery without stenosis. The vertebral arteries are patent with no dissection or aneurysm within the neck. CTA of the head will be reported separately. IMPRESSION: Atherosclerotic plaque within the proximal bilateral internal carotid arteries which results in 30% stenosis of the proximal right internal carotid artery. No stenosis of the cervical left internal carotid artery. ACT 112: Negative or not required by law. Electronically signed by: Alfonzo Munroe M.D. 01/21/2025 1:39 PM Brain MRI 01/21/25 14:41 Exam: MRI of the brain without contrast. Reason for exam: Dizziness and nausea, rule out CVA. Loss of balance. Previous studies: None FINDINGS: No evidence of pituitary mass or suprasellar lesion. There are areas of restricted diffusion in the central inferior left cerebellar hemisphere and peripherally of the medial cerebellar hemispheres bilaterally. No mass effect or hemorrhage is seen. Calvarium septum pellucidum is present. No extra-axial bladder fluid collection is present. No specific evidence of ventricular enlargement is noted. Moderate amount of diffuse and essentially symmetric bright signal is seen in the deep periventricular white matter on the T2 images most often suggestive of chronic microvascular ischemia. IMPRESSION: 1. Areas of acute ischemic infarction occurring in the periphery of the cerebellar hemispheres bilaterally, left side greater than right. 2. Negative for mass or hemorrhage. 3. Moderate chronic ischemic angiopathy in the deep white matter. 4. The patient's hospitalist Dr Galicia was informed of these findings at 1720 hours. Electronically signed by Jose Dai 01-21-2025 5:28 PM Medications Administered Home Medications Medication Instructions Recorded Confirmed Last Taken fenofibrate nanocrystallized 48 mg 48 mg PO DAILY 07/06/25 07/06/25 Unknown tablet gabapentin 100 mg capsule 100 mg PO TID 01/21/25 01/21/25 Unknown omeprazole 20 mg capsule,delayed 20 mg PO BID 01/21/25 01/21/25 Unknown release oxycodone-acetaminophen 5 mg-325 1 tab PO DIRECTED PRN Pain 01/21/25 01/21/25 Unknown mg tablet Active Medications Generic Name Dose Route Start Last Admin Trade Name May PRN Reason Stop Dose Admin Aspirin 81 mg 01/22/25 09:00 01/22/25 07:49 Aspirin 81 Mg Ectab PO 02/21/25 08:59 81 mg DAILY JOAN Administration Atorvastatin Calcium 40 mg 01/22/25 09:00 01/22/25 07:49 Atorvastatin 40 Mg Tab PO 02/21/25 08:59 40 mg QAM JOAN Administration Clopidogrel Bisulfate 75 mg 01/22/25 09:00 01/22/25 07:49 Clopidogrel Bisulfate 75 Mg Tab PO 02/21/25 08:59 75 mg QAM JOAN Administration Fenofibrate 48 mg 01/22/25 09:00 01/22/25 07:48 Fenofibrate Nanocrystallized 48 Mg Tablet PO 02/21/25 08:59 48 mg DAILY JOAN Administration Gabapentin 100 mg 01/21/25 21:00 01/22/25 07:48 Gabapentin 100 Mg Cap PO 02/20/25 20:59 100 mg TID JOAN Administration Heparin Sodium (Porcine) 5,000 units 01/21/25 21:00 01/22/25 07:52 Heparin Sod 5,000 Unit/0.5 Ml Vial SQ 02/20/25 20:59 5,000 units Q12 JOAN Administration Pantoprazole Sodium 40 mg 01/21/25 21:00 01/22/25 07:48 Pantoprazole 40 Mg Tab PO 02/20/25 20:59 40 mg BID JOAN Administration
--- NOTE | 2025-01-22 12:29 | Hospitalist Progress Note ---
Date of Service January 22, 2025 Assessment & Plan (1) Acute CVA (cerebrovascular accident): Plan: -MRI showed-Bilateral Cerebellar infarct Left>Right -Presented with acute dizziness and unsteadiness with nausea, vomiting and blurred vision since 6:30 AM -Noted to have left PICA infarct with occlusion Past the window for TNK Plan: -PT/OT evals -neurology consulted, appreciate recs -CT head today and tomorrow morning to monitor for cytogenic edema -continue DAPT x21 days -f/u echo results, needs zio patch from PCP (2) Ambulatory dysfunction: Plan: -per patient resolved (3) Peripheral neuropathy: Plan: -History of colon cancer and is status post chemotherapy -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 This time includes: history taking, physical examination, medical decision making, counseling, ECG interpretation, imaging interpretation, lab interpretation, orders, and education, excluding time spent in the performance of separately billed services. Admission and Anticipated Discharge Date Admission Date: January 21, 2025 Subjective Patient seen and examined at bedside. Patient doing well today, at bedside as well. He states he feels back to normal. Review of Systems Review of Systems: CONSTITUTIONAL: Patient denies fevers, chills, sweats and weight changes. EYES: Patient denies any visual symptoms. EARS, NOSE, AND THROAT: No difficulties with hearing. No symptoms of rhinitis or sore throat. CARDIOVASCULAR: Patient denies chest pains, palpitations, orthopnea and pa roxysmal nocturnal dyspnea. RESPIRATORY: No dyspnea on exertion, no wheezing or cough. GI: No nausea, vomiting, diarrhea, constipation, abdominal pain, hematochezia or melena. : No urinary hesitancy or dribbling. No nocturia or urinary frequency. No abnormal urethral discharge. MUSCULOSKELETAL: No myalgias or arthralgias. NEUROLOGIC: No chronic headaches, no seizures. Patient denies numbness, tingling or weakness. PSYCHIATRIC: Patient denies problems with mood disturbance. No problems with anxiety. ENDOCRINE: No excessive urination or excessive thirst. DERMATOLOGIC: Patient denies any rashes or skin changes. Physical Exam Physical Exam: Gen: A&O 3 NAD HEENT: NCAT, EOMI, not icteric. External ears normal. No rhinorrhea. Moist mucous membranes. Neck: Supple, full range of motion, no observable masses, No meningeal sign. Lungs: No Respiratory distress. CV: RRR, no edema. Abdomen: Soft, nondistended, No rebound tenderness. MSK: No joint swelling, no redness. Skin: No rashes, petechiae, lesions. Normal color per patient. Neuro: Normal Gait, Grossly intact. NIHSS 0 Psych: Appropriate for situation. Results & Data Results & Data Vital Signs (Past 12 Hours) Vital Signs Temp Pulse Pulse Resp BP Pulse Ox O2 Del Method 01/22/25 10:56 36.6 C 58 L 23 131/74 93 Room Air 01/22/25 08:24 36.7 C 68 20 132/72 92 Room Air 01/22/25 08:00 61 01/22/25 04:31 71 01/22/25 04:21 37.0 C 52 L 17 127/72 96 Room Air Laboratory Results -personally reviewed, creatinine around baseline, Na good at 139, no leukocytosis Medications Administered Aspirin (Aspirin 81 Mg Ectab) 81 mg PO DAILY [facility] Stop: 02/21/25 08:59 Last Admin: 01/22/25 07:49 Dose: 81 mg Documented By: SCOTTIE Atorvastatin Calcium (Atorvastatin 40 Mg Tab) [facility] Stop: 02/21/25 08:59 Last Admin: 01/22/25 07:49 Dose: 40 mg Documented By: SCOTTIE Clopidogrel Bisulfate (Clopidogrel Bisulfate 75 Mg Tab) 75 mg PO [facility] Stop: 02/21/25 08:59 Last Admin: 01/22/25 07:49 Dose: 75 mg Documented By: SCOTTIE Fenofibrate (Fenofibrate Nanocrystallized 48 Mg Tablet) 48 mg PO DAILY [facility] Stop: 02/21/25 08:59 Last Admin: 01/22/25 07:48 Dose: 48 mg Documented By: SCOTTIE Gabapentin (Gabapentin 100 Mg Cap) 100 mg PO TID [facility] Stop: 02/20/25 20:59 Last Admin: 01/22/25 07:48 Dose: 100 mg Documented By: Admin: 01/21/25 20:16 Dose: 100 mg Documented By: TEO Heparin Sodium (Porcine) (Heparin Sod 5,000 Unit/0.5 Ml Vial) 5,000 units SQ Q12 [facility] Stop: 02/20/25 20:59 Last Admin: 01/22/25 07:52 Dose: 5,000 units Documented By: Admin: 01/21/25 20:16 Dose: 5,000 units Documented By: TEO Pantoprazole Sodium (Pantoprazole 40 Mg Tab) 40 mg PO BID [facility] Stop: 02/20/25 20:59 Last Admin: 01/22/25 07:48 Dose: 40 mg Documented By: Admin: 01/21/25 20:16 Dose: 40 mg Documented By: TEO
--- NOTE | 2025-01-22 14:04 | CT Scan Report ---
CT head/brain wo con CLINICAL HISTORY: 69 years-old Male with monitoring for cytogenic edema cerebellum. Acute cerebellar infarcts TECHNIQUE: Multiple axial CT images of the head were obtained without contrast. A dose lowering tech nique was utilized adhering to the principles of ALARA. CT DOSE: 580.53 mGy.cm COMPARISON: Brain MRI 01/21/2025, head CT 01/21/2025. FINDINGS: No acute intracranial hemorrhage, midline shift, intracranial mass, hydrocephalus, or abnormal extra- axial collection. There is progressive cytotoxic edema within the left greater than right cerebellar hemispheres related to the acute infarcts. Cavum septum pellucidum and vergae. Involutional changes w ith chronic microvascular ischemic disease redemonstrated. The calvarium is intact. The paranasal sinuses, mastoid air cells, and middle ear cavities are clear . IMPRESSION: 1. Expected progressive cytotoxic edema associated with the acute cerebellar infarcts. 2. No hydrocephalus or herniation. 3. Involutional changes with chronic microvascular ischemic disease. ACT 112: Negative or not required by law. The above report was generated using voice recognition software. It may contain grammatical, syntax o r spelling errors. Electronically signed by: Emmett Perry M.D. 01/22/2025 2:02 PM
[2025-01-22 19:50] VITALS: O2SAT 94
[2025-01-22 23:39] VITALS: RESP 18
[2025-01-23 06:11] LABS: Anion Gap 8.0 (3-11); Blood Urea Nitrogen 13.0 mg/dl (6-23); Calcium 8.8 mg/dl (8.6-10.3); Carbon Dioxide 26.0 mmol/L (21-32); Chloride 104.0 mmol/L (98-107); Creatinine Clr Calc Pharmacy 59.5 ml/min; Glucose 104.0 mg/dl (70-99(Fasting)); Magnesium 2.1 mg/dl (1.7-2.4); Potassium 4.2 mmol/L (3.5-5.1); Sodium 138.0 mmol/L (136-145)
--- NOTE | 2025-01-23 06:16 | CT Scan Report ---
EXAM: CT head/brain wo con CLINICAL HISTORY: f/u cytotoxic edema TECHNIQUE: Multiple axial images are obtained from the skull base to the vertex without contrast. CT scan was performed according to ALARA (as low as reasonable achievable). COMPARISON: 12:07:07 [employer]. FINDINGS: There is cerebral atrophy. No evidence of space occupying lesion, hemorrhage, edema, mass effect, midline shift, extra axial collection, or hydrocephalus is noted. Basal cisterns are symmetric and normal in size and configuration. There are scattered periventricular hypodensities as can be seen with chronic microvascular ischemic changes. The fajardo-white matter differentiation is preserved. Visualized paranasal sinuses and mastoid air cells are well aerated. Orbital contents are within normal limits. Bony structures are intact. IMPRESSION: 1. No evidence of acute intracranial abnormality is demonstrated. 2. Chronic microvascular ischemic changes.-stable. 3. Cerebral atrophy.-stable. Electronically signed by Juan Wharton 01-23-2025 06:16 AM
[2025-01-23 07:50] VITALS: TEMP 97.7
[2025-01-23 09:38] VITALS: BP 135/74; PULSE 51
--- NOTE | 2025-01-23 13:03 | Discharge Summary ---
Discharge Summary Date of Service January 23, 2025 Principal Dx & Hospital Course #1 = Principal Diagnosis (1) Acute CVA (cerebrovascular accident): -MRI showed-Bilateral Cerebellar infarct Left>Right -Presented with acute dizziness and unsteadiness with nausea, vomiting and blurred vision since 6:30 AM -Noted to have left PICA infarct with occlusion Past the window for TNK Plan: -PT/OT evals -neurology consulted, appreciate recs -CT head today and tomorrow morning to monitor for cytogenic edema -continue DAPT x21 days -f/u echo results, needs zio patch from PCP (2) Ambulatory dysfunction: -per patient resolved (3) Peripheral neuropathy: -History of colon cancer and is status post chemotherapy -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 On medicine, found to have peripheral bilateral cerebellar infarcts. Neurology consulted, recommended DAPT and repeat CT head after consult and next morning, both of which showed stable expected cytotoxic edema. PT/OT cleared patient for home. On 01/23/2025 patient medically stable for discharge home. To do: [ ] stop plavix on 02/12/2025 [ ] monitor for statin induced myopathy Medication Changes From Visit -see below Admission HPI Per Admitting Provider He is 69-year-old male significant past medical history of colon cancer status postchemotherapy, peripheral neuropathy secondary to chemotherapy, hyperlipidemia, sleep apnea, GERD and lumbar degenerative disc disease apparently has been complaining of nausea with vomiting about 7 times started around 6:30 AM associated with dizziness and unsteady gait and also blurry vision. His symptoms improved after coming to the emergency room and during that time upon neuro examinations by the ER physician later on by myself have been negative. He was noted to have occlusion of the left posterior inferior cerebellar artery. The ER physician did discuss with the teleneurologist and was advised to get aspirin and Plavix and also performed stroke workup. He denies any other symptoms and does not have any fever, any chills, any nausea or vomiting, any chest pain palpitation, any blurry of vision or headache and does not have any numbness and or tingling involving any of the extremities. He was admitted to telemetry unit for continuation of care Discharge Exam Gen: A&O 3 NAD HEENT: NCAT, EOMI, not icteric. External ears normal. No rhinorrhea. Moist mucous membranes. Neck: Supple, full range of motion, no observable masses, No meningeal sign. Lungs: No Respiratory distress. CV: RRR, no edema. Abdomen: Soft, nondistended, No rebound tenderness. MSK: No joint swelling, no redness. Skin: No rashes, petechiae, lesions. Normal color per patient. Neuro: Normal Gait, Grossly intact. NIHSS 0 Psych: Appropriate for situation. Updated Medication List Medication Instructions Recorded Confirmed Type fenofibrate nanocrystallized 48 mg 48 mg PO DAILY 01/21/25 01/21/25 History tablet gabapentin 100 mg capsule 100 mg PO TID 01/21/25 01/21/25 History omeprazole 20 mg capsule,delayed 20 mg PO BID 01/21/25 01/21/25 History release oxycodone-acetaminophen 5 mg-325 1 tab PO DIRECTED PRN Pain 01/21/25 01/21/25 History mg tablet aspirin 81 mg tablet,delayed 81 mg PO DAILY #30 tabs 01/23/25 Rx release atorvastatin 40 mg tablet 40 mg PO QAM #30 tabs 01/23/25 Rx clopidogrel 75 mg tablet 75 mg PO QAM 20 days #20 tabs 01/23/25 Rx Hospital Stay Data Consultations 01/21/25 14:18 ED Decision to Admit Stat 01/21/25 17:54 Consult Neurology Routine Diagnostic Imagining Performed 01/21/25 12:09 CT angio head w con Stat CT angio neck with con Stat CT head/brain wo con Stat 01/21/25 14:41 MRI Brain [MR brain wo con] Stat 01/22/25 12:24 CT head/brain wo con Urgent 01/23/25 06:00 CT head/brain wo con Routine Pending Results Patient Have Any Pending Studies at Discharge: No Discharge Instructions Given to Patient (Per Discharging Provider) 1. Please follow up with PCP, neurology. 2. Please take medications as prescribed. Total Time Total Time Spent Total Time Spent (In Minutes): I spent a total of 35 minutes in direct patient care, including [id number] time with the patient and/or family, reviewing medical records, ordering and reviewing diagnostic tests, and coordinating care with other healthcare providers. This time includes: history taking, physical examination, medical decision making, counseling, ECG interpretation, imaging interpretation, lab interpretation, orders, and education, excluding time spent in the performance of separately billed services.
== END 2025-01-23 10:39 | disposition home or self-care (01) | DRG 64 ==
LOC: ED 11:59 → SUATTDRO 14:37 → 2E 14:37